=== PATIENT | female | born 1945 | race Caucasian/White ===

== ENCOUNTER → 2017-04-24 09:36 | Outpatient (CLI) | payer MEDICARE, OTHER ==
[2016-06-12 09:02] VITALS: BMI 25.3
[~2017-04-24 09:36] MED LIST: COLAZAL750 MG PO; HYDROCODON-ACE1 EAC7 PO; MAGNESIUM OXID250 M1 PO; POTASSIUM40 MEQ/15 PO; PREDNISONE10 MG PO; PROZAC10 MG PO; TUSSIONEX PENN473 ML PO
== END | disposition home or self-care (01) ==
LOC: D.MRI 09:36
DX: M51.36 Other intervertebral disc degeneration, lumbar region (principal); M50.30 Other cervical disc degeneration, unspecified cervical region

== ENCOUNTER → 2017-05-05 14:06 | Outpatient (CLI) | payer MEDICARE, OTHER ==
[2016-06-12 09:02] VITALS: BMI 25.3
== END | disposition home or self-care (01) ==
LOC: D.MRI 14:06
DX: R22.2 Localized swelling, mass and lump, trunk (principal)

== ENCOUNTER → 2017-08-07 16:45 | Outpatient (CLI) | payer MEDICARE, OTHER ==
[2016-06-12 09:02] VITALS: BMI 25.3
== END | disposition home or self-care (01) ==
LOC: D.MAMMO 07-23 15:30
DX: Z12.31 Encounter for screening mammogram for malignant neoplasm of breast (principal)

== ENCOUNTER → 2019-05-11 08:00 | Outpatient (CLI) | payer MEDICARE, OTHER ==
[2016-06-12 09:02] VITALS: BMI 25.3
== END | disposition home or self-care (01) ==
LOC: D.MAMMO 04-15 15:45
PROVIDERS: ATTEND Family Medicine
DX: Z12.31 Encounter for screening mammogram for malignant neoplasm of breast (principal)

== ENCOUNTER 2019-07-12 12:28 | Outpatient (CLI) | payer MEDICARE, OTHER ==
[~2019-07-12] VITALS: Ht 160 cm; Wt 70.5 kg
[2019-07-12 12:54] VITALS: BP 115/52; Ht 160 cm; Wt 70.5 kg
== END 2019-07-12 13:26 | disposition home or self-care (01) ==
LOC: D.OPS 12:28
PROVIDERS: ATTEND Family Medicine
DX: M81.0 Age-related osteoporosis without current pathological fracture (principal)

== ENCOUNTER → 2019-09-01 13:44 | Outpatient (CLI) | payer MEDICARE, OTHER ==
[2019-07-12 12:54] VITALS: BMI 27.5
== END | disposition home or self-care (01) ==
LOC: D.CT 13:44
PROVIDERS: ATTEND Family Medicine
DX: R06.00 Dyspnea, unspecified (principal)

== ENCOUNTER 2020-01-17 13:14 | Outpatient (CLI) | payer MEDICARE, OTHER ==
[~2020-01-17] VITALS: Ht 160 cm; Wt 74.5 kg
[2020-01-17 13:37] VITALS: Ht 160 cm; Wt 74.5 kg
== END 2020-01-17 13:44 | disposition home or self-care (01) ==
LOC: D.OPS 13:14
PROVIDERS: ATTEND Family Medicine
DX: M81.0 Age-related osteoporosis without current pathological fracture (principal)

== ENCOUNTER 2020-07-18 11:50 | Outpatient (CLI) | payer MEDICARE, OTHER ==
[~2020-07-18] VITALS: Ht 160 cm; Wt 76.4 kg
[2020-07-18 12:25] VITALS: BP 160/70; Ht 160 cm; Wt 76.4 kg
== END 2020-07-18 12:37 | disposition home or self-care (01) ==
LOC: D.OPS 11:50
PROVIDERS: ATTEND Family Medicine
DX: M81.0 Age-related osteoporosis without current pathological fracture (principal)

== ENCOUNTER 2021-01-22 11:45 | Outpatient (CLI) | payer MEDICARE ==
[~2021-01-22] VITALS: Ht 160 cm; Wt 74.1 kg
[2021-01-22 12:35] VITALS: BP 142/69; Ht 160 cm; Wt 74.1 kg
--- NOTE | 2021-01-22 12:44 | NUR ---
PT LEAVING AT THIS TIME NAD NOTED.
== END 2021-01-22 12:44 | disposition home or self-care (01) ==
LOC: D.OPS 11:45
PROVIDERS: ATTEND Family Medicine
DX: M81.0 Age-related osteoporosis without current pathological fracture (principal)

== ENCOUNTER → 2021-05-15 11:45 | Outpatient (CLI) | payer MEDICARE, OTHER ==
[2021-01-22 12:35] VITALS: BMI 28.9
== END | disposition home or self-care (01) ==
LOC: D.RT 11:45
PROVIDERS: ATTEND Family Medicine
DX: R06.00 Dyspnea, unspecified (principal)